=== PATIENT | female | born 1955 | race Two or more races ===

== ENCOUNTER → 2023-12-07 | Emergency (ER) | payer MEDICARE, OTHER ==
[~2023-12-07] VITALS: Ht 160 cm; Wt 68.0 kg
[~2023-12-07] MED LIST: AMLO10TA4 PO; CALC500T53 PO; CT SWABBABLE VALVE TRANS SET 1 EA INFUS.SET MC ONE; EZET10TA15 PO; FAMOTIDINE/PF INJ 20 MG/2 ML VIAL IV ONE; GABA-532 PO; HYDR-4076 PO; HYDROMORPHONE 1 MG/1 ML DISP.SYRIN ONE; IOHEXOL-300 100 ML VIAL IV ONE; IV NS 0.9% 250 ML IV ONE; LOSA100T31 PO; ONDANSETRON HCL/PF 4 MG/2 ML VIAL ONE; OXYC10TA49 PO
[2023-12-07] MEDS: ONDANSETRON HCL/PF 4 MG/2 ML VIAL IVP ONE (11:34)
[2023-12-07] MEDS: HYDROMORPHONE INJ 2 MG/ML DISP.SYRIN IV ONE (11:35)
[2023-12-07 12:16] LABS: CALCIUM, SERUM 10.6 mg/dL (8.5-10.1); CREATININE 3.7 mg/dL (0.6-1.3); POTASSIUM 3.9 mmol/L (3.5-5.1)
[2023-12-07 12:21] LABS: ALBUMIN 2.6 g/dL (3.4-5.0); BILIRUBIN,DIRECT 0.1 mg/dL (0.0-0.2); BILIRUBIN,TOTAL 0.4 mg/dL (0.2-1.0); TOTAL PROTEIN, SERUM 8.6 g/dL (6.4-8.2)
[2023-12-07] MEDS: FAMOTIDINE/PF INJ 20 MG/2 ML VIAL IV ONE (12:22)
[2023-12-07 14:16] LABS: BASOPHILS % (AUTO) 0.3 % (0.0-2.0); EOSINOPHILS % (AUTO) 0.5 % (0.0-6.0); HEMATOCRIT 26 % (33-45); HEMOGLOBIN 8.6 g/dL (11.5-14.8); LYMPHOCYTES # (AUTO) 1.4 K/uL (0.8-4.8); LYMPHOCYTES % (AUTO) 16.6 % (20.0-44.0); MEAN CORPUSCULAR HEMOGLOBIN 32 PG (26.0-33.0); MEAN CORPUSCULAR HGB CONC 33 g/dl (31.0-36.0); MEAN CORPUSCULAR VOLUME 98 fL (82-100); MONOCYTES # (AUTO) 0.4 K/uL (0.1-1.30); MONOCYTES % (AUTO) 4.6 % (2.0-12.0); NEUTROPHILS # (AUTO) 6.7 K/uL (1.8-8.9); PLATELET COUNT (AUTO) 132 K/uL (150-450); RED BLOOD CELL COUNT(AUTO) 2.69 MIL/uL (4.0-5.2); RED CELL DISTRIBUTION WIDTH 21.6 % (11.5-15.0); WHITE BLOOD COUNT (AUTO) 8.6 K/uL (4.3-11.0)
[2023-12-07 14:46] LABS: APPEARANCE,URINE SLIGHTLY CLOUDY (CLEAR); BILIRUBIN,URINE NEGATIVE (NEGATIVE); BLOOD, URINE NEGATIVE Ery/uL (NEGATIVE); COLOR,URINE YELLOW (YELLOW); KETONES,URINE NEGATIVE (NEGATIVE); LEUKOCYTE ESTERASE ,URINE NEGATIVE (NEGATIVE); NITRITE, URINE NEGATIVE (NEGATIVE); PROTEIN,URINE 1+ mg/dl (NEGATIVE); UGLUCOSE NEGATIVE (NEGATIVE); UROBILINOGEN,URINE 0.2 EU/dL (0.2)
[2023-12-07 15:06] LABS: ADD URINE CULTURE NO; BACTERIA,URINE Few /HPF (None Seen)
[2023-12-07] MEDS: HYDROMORPHONE 1 MG/1 ML DISP.SYRIN IV ONE (15:06)
[2023-12-07 15:07] LABS: HYALINE CASTS, URINE Few /LPF (None Seen); SQUAMOUS EPITHELIAL CELL,UR Few /HPF (None Seen); URINE AMORPHOUS PHOSPHATES Few /HPF (None Seen)
[2023-12-07] MEDS: IV NS 0.9% 500 ML BAG IV ONE (15:13)
[2023-12-07 16:42] VITALS: BP 155/85; TEMP 98.1; O2SAT 96
== END | disposition home or self-care (01) ==
LOC: ER 11:16
DX: R10.84 Generalized abdominal pain (principal); C45.1 Mesothelioma of peritoneum; K59.00 Constipation, unspecified; N18.9 Chronic kidney disease, unspecified; R18.8 Other ascites; Z79.899 Other long term (current) drug therapy
CPT/HCPCS: 99285; 74177; 96374; 96375; 96376; 85025; 80048; 83690; 80076; 81001; 36415; J3490; J2405; J7050; J7040; Q9967; J1171 ×2

== ENCOUNTER 2023-12-10 13:19 | Emergency (ER) | payer MEDICARE, OTHER ==
[~2023-12-10] VITALS: Ht 167.6 cm; Wt 67.1 kg
[~2023-12-10 13:19] MED LIST changes: -CT SWABBABLE VALVE TRANS SET 1 EA INFUS.SET MC ONE; -FAMOTIDINE/PF INJ 20 MG/2 ML VIAL IV ONE; -HYDROMORPHONE 1 MG/1 ML DISP.SYRIN ONE; -IOHEXOL-300 100 ML VIAL IV ONE; -IV NS 0.9% 250 ML IV ONE; -ONDANSETRON HCL/PF 4 MG/2 ML VIAL ONE
[2023-12-10] MEDS ORDERED: ONDANSETRON HCL/PF 4 MG/2 ML VIAL ONE (13:48)
[2023-12-10] MEDS ORDERED: HYDROMORPHONE 1 MG/1 ML DISP.SYRIN ONE (13:48)
[2023-12-10] MEDS: ONDANSETRON HCL/PF 4 MG/2 ML VIAL IVP ONE (14:05)
[2023-12-10] MEDS: HYDROMORPHONE INJ 2 MG/ML DISP.SYRIN IV ONE (14:05)
[2023-12-10] MEDS: IV NS 0.9% 500 ML BAG IV ONE (14:10)
[2023-12-10 14:32] LABS: BASOPHILS % (AUTO) 0.6 % (0.0-2.0); EOSINOPHILS # (AUTO) 0.1 K/uL (0.0-0.7); HEMATOCRIT 27 % (33-45); HEMOGLOBIN 8.9 g/dL (11.5-14.8); LYMPHOCYTES % (AUTO) 15.6 % (20.0-44.0); MEAN CORPUSCULAR HEMOGLOBIN 32 PG (26.0-33.0); MEAN CORPUSCULAR HGB CONC 33 g/dl (31.0-36.0); MEAN CORPUSCULAR VOLUME 98 fL (82-100); MONOCYTES # (AUTO) 0.4 K/uL (0.1-1.30); NEUTROPHILS # (AUTO) 5.1 K/uL (1.8-8.9); NEUTROPHILS % (AUTO) 76.8 % (43.0-81.0); PLATELET COUNT (AUTO) 132 K/uL (150-450); RED BLOOD CELL COUNT(AUTO) 2.78 MIL/uL (4.0-5.2); RED CELL DISTRIBUTION WIDTH 21.1 % (11.5-15.0); WHITE BLOOD COUNT (AUTO) 6.6 K/uL (4.3-11.0)
[2023-12-10 14:48] LABS: CALCIUM, SERUM 9.3 mg/dL (8.5-10.1); CREATININE 3.9 mg/dL (0.6-1.3); POTASSIUM 3.8 mmol/L (3.5-5.1)
[2023-12-10 14:54] LABS: ALBUMIN 2.4 g/dL (3.4-5.0); BILIRUBIN,DIRECT 0.1 mg/dL (0.0-0.2); BILIRUBIN,TOTAL 0.4 mg/dL (0.2-1.0); TOTAL PROTEIN, SERUM 7.9 g/dL (6.4-8.2)
[2023-12-10] MEDS ORDERED: PROC5TAB56 PO (15:15)
[2023-12-10 16:15] VITALS: BP 138/78; TEMP 98.4; O2SAT 98
== END 2023-12-10 16:15 | disposition home or self-care (01) ==
LOC: ER 13:21
DX: C45.1 Mesothelioma of peritoneum (principal); R10.84 Generalized abdominal pain; N18.9 Chronic kidney disease, unspecified; R18.8 Other ascites; Z79.899 Other long term (current) drug therapy; Z85.89 Personal history of malignant neoplasm of other organs and systems
CPT/HCPCS: 99284; 96374; 96375; 85025; 80048; 83690; 80076; 36415; J2405; J7040; J1171

== ENCOUNTER 2023-12-22 11:06 | Emergency (ER) | payer MEDICARE, OTHER ==
[~2023-12-22] VITALS: Ht 167.6 cm; Wt 65.8 kg
[~2023-12-22 11:06] MED LIST changes: +PROC5TAB56 PO
[2023-12-22] MEDS ORDERED: ONDANSETRON HCL/PF 4 MG/2 ML VIAL ONE (11:56)
[2023-12-22] MEDS ORDERED: HYDROMORPHONE 1 MG/1 ML DISP.SYRIN ONE (11:56)
[2023-12-22] MEDS: ONDANSETRON HCL/PF 4 MG/2 ML VIAL IVP ONE (12:03)
[2023-12-22] MEDS: IV NS 0.9% 1,000 ML BAG IV ONE (12:03)
[2023-12-22] MEDS: HYDROMORPHONE INJ 2 MG/ML DISP.SYRIN IV ONE (12:04)
[2023-12-22 12:09] LABS: CALCIUM, SERUM 9.3 mg/dL (8.5-10.1); CREATININE 4.9 mg/dL (0.6-1.3); POTASSIUM 4.2 mmol/L (3.5-5.1)
[2023-12-22 12:10] LABS: BASOPHILS # (AUTO) 0.1 K/uL (0.0-0.2); BASOPHILS % (AUTO) 0.6 % (0.0-2.0); EOSINOPHILS % (AUTO) 0.4 % (0.0-6.0); HEMATOCRIT 33 % (33-45); HEMOGLOBIN 10.7 g/dL (11.5-14.8); LYMPHOCYTES # (AUTO) 1.2 K/uL (0.8-4.8); LYMPHOCYTES % (AUTO) 12.6 % (20.0-44.0); MEAN CORPUSCULAR HEMOGLOBIN 34 PG (26.0-33.0); MEAN CORPUSCULAR HGB CONC 33 g/dl (31.0-36.0); MEAN CORPUSCULAR VOLUME 104 fL (82-100); MONOCYTES # (AUTO) 0.4 K/uL (0.1-1.30); MONOCYTES % (AUTO) 4.4 % (2.0-12.0); PLATELET COUNT (AUTO) 139 K/uL (150-450); RED BLOOD CELL COUNT(AUTO) 3.16 MIL/uL (4.0-5.2); RED CELL DISTRIBUTION WIDTH 18.4 % (11.5-15.0); WHITE BLOOD COUNT (AUTO) 9.8 K/uL (4.3-11.0)
[2023-12-22 12:15] LABS: ALBUMIN 2.4 g/dL (3.4-5.0); BILIRUBIN,DIRECT 0.2 mg/dL (0.0-0.2); BILIRUBIN,TOTAL 0.4 mg/dL (0.2-1.0); TOTAL PROTEIN, SERUM 7.9 g/dL (6.4-8.2)
[2023-12-22 12:53] VITALS: BP 132/84; TEMP 98; O2SAT 99
== END 2023-12-22 12:53 | disposition home or self-care (01) ==
LOC: ER 11:06
DX: C45.1 Mesothelioma of peritoneum (principal); N28.9 Disorder of kidney and ureter, unspecified; R10.84 Generalized abdominal pain
CPT/HCPCS: 99285; 74176; 96374; 96361; 96375; 85025; 80048; 83690; 80076; 36415; J2405; J7030; J1171

== ENCOUNTER 2023-12-28 19:36 | Emergency (ER) | payer MEDICARE, OTHER ==
[~2023-12-28] VITALS: Ht 167.6 cm; Wt 59.0 kg
[2023-12-28 19:57] VITALS: TEMP 99.9
[2023-12-28] MEDS: IV NS 0.9% 1,000 ML BAG IV ONE (20:20)
[2023-12-28] MEDS ORDERED: ONDANSETRON HCL/PF 4 MG/2 ML VIAL ONE ×2 (20:20→21:28)
[2023-12-28] MEDS ORDERED: MORPHINE SULFATE INJ 2 MG/ML DISP.SYRIN ONE ×2 (20:21→21:28)
[2023-12-28] MEDS ORDERED: FAMOTIDINE/PF INJ 20 MG/2 ML VIAL IV ONE (20:21)
[2023-12-28 20:22] LABS: BASOPHILS % (AUTO) 0.5 % (0.0-2.0); EOSINOPHILS # (AUTO) 0.1 K/uL (0.0-0.7); EOSINOPHILS % (AUTO) 0.8 % (0.0-6.0); HEMATOCRIT 31 % (33-45); HEMOGLOBIN 10.2 g/dL (11.5-14.8); LYMPHOCYTES # (AUTO) 1.7 K/uL (0.8-4.8); LYMPHOCYTES % (AUTO) 24.9 % (20.0-44.0); MEAN CORPUSCULAR HEMOGLOBIN 33 PG (26.0-33.0); MEAN CORPUSCULAR HGB CONC 33 g/dl (31.0-36.0); MEAN CORPUSCULAR VOLUME 102 fL (82-100); MONOCYTES # (AUTO) 0.4 K/uL (0.1-1.30); MONOCYTES % (AUTO) 6.5 % (2.0-12.0); NEUTROPHILS # (AUTO) 4.6 K/uL (1.8-8.9); NEUTROPHILS % (AUTO) 67.3 % (43.0-81.0); PLATELET COUNT (AUTO) 113 K/uL (150-450); RED BLOOD CELL COUNT(AUTO) 3.06 MIL/uL (4.0-5.2); RED CELL DISTRIBUTION WIDTH 16.6 % (11.5-15.0); WHITE BLOOD COUNT (AUTO) 6.8 K/uL (4.3-11.0)
[2023-12-28] MEDS: ONDANSETRON HCL/PF 4 MG/2 ML VIAL IVP ONE (20:22)
[2023-12-28] MEDS: FAMOTIDINE/PF INJ 20 MG/2 ML VIAL IV ONE (20:23)
[2023-12-28] MEDS: MORPHINE SULFATE INJ 2 MG/ML DISP.SYRIN IV ONE ×2 (20:24→21:32)
[2023-12-28 20:39] LABS: ALANINE AMINOTRANSFERASE 11 U/L (12-78); ALBUMIN 1.9 g/dL (3.4-5.0); ALKALINE PHOSPHATASE 72 U/L (46-116); ASPARTATE AMINOTRANSFERASE 19 U/L (15-37); BILIRUBIN,DIRECT 0.1 mg/dL (0.0-0.2); BILIRUBIN,TOTAL 0.3 mg/dL (0.2-1.0); CALCIUM, SERUM 8.9 mg/dL (8.5-10.1); CARBON DIOXIDE 22 mmol/L (21-32); CHLORIDE 99 mmol/L (98-107); CREATININE 3.8 mg/dL (0.6-1.3); GLUCOSE 103 mg/dL (74-106); LIPASE 13 U/L (16-77); SODIUM SERUM 136 mmol/L (136-145); UREA NITROGEN, BLOOD 60 mg/dL (7-18)
[2023-12-28] MEDS ORDERED: ASPIRIN 325 MG TABLET ONE (21:10)
[2023-12-28] MEDS ORDERED: PANTOPRAZOLE 40 MG VIAL ONE (21:10)
[2023-12-28] MEDS: PANTOPRAZOLE 40 MG VIAL IV ONE (21:18)
[2023-12-28] MEDS: ASPIRIN 325 MG TABLET PO ONE (21:19)
[2023-12-28] MEDS: ONDANSETRON HCL/PF - ER 4 MG/2 ML VIAL IV ONE (21:30)
[2023-12-28 21:39] VITALS: BP 128/78; O2SAT 99
[2023-12-28 22:18] LABS: EOSINOPHILS % (MANUAL) 1 % (0-4); LYMPHOCYTES % (MANUAL) 27 % (16-48); MONOCYTES % (MANUAL) 7 % (0-11.0); NEUTROPHILS % (MANUAL) 65 (42-76); PLATELET ESTIMATE DECREASED
== END 2023-12-28 21:36 | disposition home or self-care (01) ==
LOC: ER 19:40
DX: I21.4 Non-ST elevation (NSTEMI) myocardial infarction (principal); Z92.21 Personal history of antineoplastic chemotherapy
CPT/HCPCS: 99291; 96374; 96375; 96361; 93005; 74021; 96376; 85025; 80048; 83690; 80076; 36415; 84484; 85007; J3490; J2405 ×3; J7030; J2470; J2270 ×2

== ENCOUNTER 2023-12-31 09:23 | Inpatient (IN) | payer MEDICARE, OTHER ==
[~2023-12-31] VITALS: Ht 162.6 cm; Wt 67.6 kg
[2023-12-31] MEDS: ONDANSETRON HCL/PF 4 MG/2 ML VIAL IVP ONE (10:30)
[2023-12-31] MEDS: FAMOTIDINE/PF INJ 20 MG/2 ML VIAL IV ONE (10:35)
[2023-12-31] MEDS: IV NS 0.9% 1,000 ML BAG IV ONE (10:40)
[2023-12-31] MEDS ORDERED: FAMOTIDINE/PF INJ 20 MG/2 ML VIAL IV ONE (10:44)
[2023-12-31] MEDS ORDERED: ONDANSETRON HCL/PF 4 MG/2 ML VIAL ONE (10:44)
[2023-12-31] MEDS ORDERED: MORPHINE SULFATE INJ 2 MG/ML DISP.SYRIN ONE (10:44)
[2023-12-31 10:51] LABS: BASOPHILS % (AUTO) 0.6 % (0.0-2.0); EOSINOPHILS % (AUTO) 0.4 % (0.0-6.0); HEMATOCRIT 30 % (33-45); LYMPHOCYTES % (AUTO) 15.3 % (20.0-44.0); MEAN CORPUSCULAR HEMOGLOBIN 34 PG (26.0-33.0); MEAN CORPUSCULAR HGB CONC 33 g/dl (31.0-36.0); MEAN CORPUSCULAR VOLUME 102 fL (82-100); MONOCYTES # (AUTO) 0.3 K/uL (0.1-1.30); MONOCYTES % (AUTO) 4.6 % (2.0-12.0); NEUTROPHILS # (AUTO) 5.3 K/uL (1.8-8.9); NEUTROPHILS % (AUTO) 79.1 % (43.0-81.0); PLATELET COUNT (AUTO) 114 K/uL (150-450); RED BLOOD CELL COUNT(AUTO) 2.93 MIL/uL (4.0-5.2); RED CELL DISTRIBUTION WIDTH 15.8 % (11.5-15.0); WHITE BLOOD COUNT (AUTO) 6.7 K/uL (4.3-11.0)
[2023-12-31 11:00] LABS: ALBUMIN 1.8 g/dL (3.4-5.0); BILIRUBIN,DIRECT 0.1 mg/dL (0.0-0.2); BILIRUBIN,TOTAL 0.3 mg/dL (0.2-1.0); CALCIUM, SERUM 9.2 mg/dL (8.5-10.1); CREATININE 3.9 mg/dL (0.6-1.3); POTASSIUM 4.5 mmol/L (3.5-5.1); TOTAL PROTEIN, SERUM 6.7 g/dL (6.4-8.2)
[2023-12-31] MEDS: MORPHINE SULFATE INJ 2 MG/ML DISP.SYRIN IV ONE (11:04)
[2023-12-31] MEDS ORDERED: METOCLOPRAMIDE HCL 10 MG/2 ML VIAL ONE (11:23)
[2023-12-31] MEDS ORDERED: diphenhydrAMINE HCL 50 MG/ML VIAL ONE (11:23)
[2023-12-31] MEDS: METOCLOPRAMIDE HCL 10 MG/2 ML VIAL IV ONE (11:30)
[2023-12-31] MEDS: ASPIRIN 325 MG TABLET PO ONE (11:31)
[2023-12-31] MEDS: diphenhydrAMINE HCL 50 MG/ML VIAL IV ONE (11:41)
[2023-12-31 12:00] VITALS: O2SAT 96
[2023-12-31] MEDS: HYDROMORPHONE 1 MG/1 ML DISP.SYRIN IV ONE (12:18)
[2023-12-31] MEDS ORDERED: Z GUARD REMEDY 4 OZ OINT TP PRN (12:30)
[2023-12-31] MEDS ORDERED: oxyCODONE IR immediate release 5 MG TABLET PO PRN (12:30)
[2023-12-31] MEDS ORDERED: ACETAMINOPHEN 325 MG TABLET PO PRN (12:30)
[2023-12-31] MEDS ORDERED: PROCHLORPERAZINE MALEATE 5 MG TABLET PO PRN (12:30)
[2023-12-31] MEDS ORDERED: PROCHLORPERAZINE MALEATE 10 MG TABLET PO PRN (12:30)
[2023-12-31] MEDS: HYDROMORPHONE 1 MG/1 ML DISP.SYRIN IV PRN (14:22)
[2023-12-31] MEDS: PANTOPRAZOLE 40 MG VIAL IV SCH (14:26)
[2023-12-31] MEDS: IV NS 0.9% 1,000 ML IV PRN (15:49)
[2023-12-31 16:00] VITALS: BP 138/79; TEMP 97.9; O2SAT 99
[2023-12-31 16:09] LABS: RHEUMATOID FACTOR SCREEN NEGATIVE (NEGATIVE)
[2023-12-31 16:55] LABS: C-REACTIVE PROTEIN 14.93 mg/dL (0.0-0.30); THYROID STIMULATING HORMONE 31.13 uIU/mL (0.358-3.74)
[2023-12-31] MEDS: GABAPENTIN 100 MG CAPSULE PO SCH (17:05)
[2023-12-31] MEDS: AMLODIPINE BESYLATE 10 MG TABLET PO SCH (18:14)
[2023-12-31] MEDS: MAG HYDROX/AL HYDROX/SIMETH 30 ML UDC PO PRN (19:19)
[2023-12-31 21:10] VITALS: BP 136/85; TEMP 98.2; O2SAT 96
[2023-12-31] MEDS: ONDANSETRON HCL/PF 4 MG/2 ML VIAL IVP PRN (21:45)
[2023-12-31] MEDS ORDERED: FAMOTIDINE (20 MG) 20 MG TABLET PO SCH (22:30)
[2023-12-31] MEDS ORDERED: diphenhydrAMINE HCL ELIX 25 MG/10 ML UDC PO PRN (22:30)
[2024-01-01] MEDS: FAMOTIDINE (20 MG) 20 MG TABLET PO ONE (00:20)
[2024-01-01 00:28] VITALS: BP 146/81; TEMP 98.2; O2SAT 98
[2024-01-01 04:34] VITALS: BP 139/78; TEMP 98.2; O2SAT 95
[2024-01-01 06:57] LABS: ALBUMIN 1.7 g/dL (3.4-5.0); BILIRUBIN,TOTAL 0.4 mg/dL (0.2-1.0); CALCIUM, SERUM 8.8 mg/dL (8.5-10.1); CREATININE 3.8 mg/dL (0.6-1.3); PHOSPHORUS 3.8 mg/dL (2.5-4.9); POTASSIUM 4.3 mmol/L (3.5-5.1); TOTAL PROTEIN, SERUM 6.4 g/dL (6.4-8.2)
[2024-01-01 07:00] LABS: BASOPHILS % (AUTO) 0.3 % (0.0-2.0); EOSINOPHILS % (AUTO) 0.8 % (0.0-6.0); HEMATOCRIT 29 % (33-45); HEMOGLOBIN 9.4 g/dL (11.5-14.8); LYMPHOCYTES # (AUTO) 0.9 K/uL (0.8-4.8); LYMPHOCYTES % (AUTO) 14.9 % (20.0-44.0); MEAN CORPUSCULAR HEMOGLOBIN 34 PG (26.0-33.0); MEAN CORPUSCULAR HGB CONC 33 g/dl (31.0-36.0); MEAN CORPUSCULAR VOLUME 103 fL (82-100); MONOCYTES # (AUTO) 0.4 K/uL (0.1-1.30); MONOCYTES % (AUTO) 5.9 % (2.0-12.0); NEUTROPHILS # (AUTO) 4.8 K/uL (1.8-8.9); NEUTROPHILS % (AUTO) 78.1 % (43.0-81.0); PLATELET COUNT (AUTO) 113 K/uL (150-450); RED BLOOD CELL COUNT(AUTO) 2.77 MIL/uL (4.0-5.2); RED CELL DISTRIBUTION WIDTH 15.7 % (11.5-15.0); WHITE BLOOD COUNT (AUTO) 6.2 K/uL (4.3-11.0)
[2024-01-01 07:07] LABS: HEPATITIS B SURFACE AB Non Reactive (.)
[2024-01-01 07:44] LABS: MAGNESIUM 0.8 mg/dL (1.8-2.4)
[2024-01-01 08:00] VITALS: BP 154/83; TEMP 97.9; O2SAT 97
[2024-01-01 08:10] LABS: IMMUNOGLOBULIN A, SERUM 209 mg/dL (87-352); IMMUNOGLOBULIN G, SERUM 1356 mg/dL (586-1602); IMMUNOGLOBULIN M, SERUM 86 mg/dL (26-217)
[2024-01-01] MEDS: Magnesium 1GM/D5W 100ML PREMIX 100 ML IV SCH (08:18)
[2024-01-01] MEDS: FAMOTIDINE (20 MG) 20 MG TABLET PO SCH (08:18)
[2024-01-01] MEDS: LOSARTAN POTASSIUM 50 MG TABLET PO SCH (08:19)
[2024-01-01] MEDS: PANTOPRAZOLE 40 MG TABLET.DR PO SCH (09:20)
[2024-01-01 11:07] LABS: *SPE A/G RATIO 0.6 (0.7-1.7); *SPE ALPHA-1-GLOBULIN 0.4 g/dL (0.0-0.4); *SPE ALPHA-2-GLOBULIN 0.7 g/dL (0.4-1.0); *SPE BETA GLOBULIN 0.9 g/dL (0.7-1.3); *SPE GLOBULIN, TOTAL 3.5 g/dL (2.2-3.9); *SPE M-SPIKE Not Observed g/dL (Not Observed); *SPE PROTEIN TOTAL 5.5 g/dL (6.0-8.5); *SPEGAMMA GLOBULIN 1.4 g/dL (0.4-1.8)
[2024-01-01] MEDS: LEVOTHYROXINE SODIUM 50 MCG TABLET PO SCH (11:21)
[2024-01-01 12:10] LABS: *ANA ANTI-CENTROMERE B AB <0.2 AI (0.0-0.9); *ANA ANTI-DNA(DS) AB, QN <1 IU/mL (0-9); *ANA ANTI-JO-1 <0.2 AI (0.0-0.9); *ANA ANTICHROMATIN ANTIBODY <0.2 AI (0.0-0.9); *ANA RNP ANTIBODIES <0.2 AI (0.0-0.9); *ANA SJOGREN'S ANTI-SS-A <0.2 AI (0.0-0.9); *ANA SJOGREN'S ANTI-SS-B <0.2 AI (0.0-0.9); *ANAANTI-SCLERODERMA-70 AB <0.2 AI (0.0-0.9); *ANASMITH AB <0.2 AI (0.0-0.9)
[2024-01-01 13:13] LABS: FREE KAPPA LT CHAINS SERUM 111.3 mg/L (3.3-19.4); KAPPA/LAMBDA RATIO SERUM 1.37 (0.26-1.65)
[2024-01-01 16:00] VITALS: BP 138/73; TEMP 97.7; O2SAT 95
[2024-01-01] MEDS: dexAMETHasone 4 MG TABLET PO SCH (17:08)
[2024-01-01] MEDS: PROCHLORPERAZINE EDISYLATE 10 MG/2 ML VIAL IM/IV PRN (18:35)
[2024-01-02 07:30] VITALS: BP 107/59; TEMP 97.7; O2SAT 95
[2024-01-02 13:04] LABS: BASOPHILS % (AUTO) 0.2 % (0.0-2.0); EOSINOPHILS % (AUTO) 0.2 % (0.0-6.0); HEMATOCRIT 29 % (33-45); HEMOGLOBIN 9.4 g/dL (11.5-14.8); LYMPHOCYTES # (AUTO) 0.8 K/uL (0.8-4.8); LYMPHOCYTES % (AUTO) 11.8 % (20.0-44.0); MEAN CORPUSCULAR HEMOGLOBIN 35 PG (26.0-33.0); MEAN CORPUSCULAR HGB CONC 33 g/dl (31.0-36.0); MEAN CORPUSCULAR VOLUME 106 fL (82-100); MONOCYTES # (AUTO) 0.3 K/uL (0.1-1.30); NEUTROPHILS # (AUTO) 5.5 K/uL (1.8-8.9); NEUTROPHILS % (AUTO) 83.8 % (43.0-81.0); PLATELET COUNT (AUTO) 135 K/uL (150-450); RED CELL DISTRIBUTION WIDTH 15.4 % (11.5-15.0); WHITE BLOOD COUNT (AUTO) 6.5 K/uL (4.3-11.0)
[2024-01-02 13:17] LABS: ALBUMIN 1.6 g/dL (3.4-5.0); BILIRUBIN,TOTAL 0.3 mg/dL (0.2-1.0); CALCIUM, SERUM 8.7 mg/dL (8.5-10.1); MAGNESIUM 2.1 mg/dL (1.8-2.4); PHOSPHORUS 4.4 mg/dL (2.5-4.9); POTASSIUM 4.9 mmol/L (3.5-5.1); TOTAL PROTEIN, SERUM 6.1 g/dL (6.4-8.2)
[2024-01-02 16:00] VITALS: BP 132/66; TEMP 97.7; O2SAT 94
[2024-01-02 16:27] LABS: BASOPHILS % (AUTO) 0.3 % (0.0-2.0); EOSINOPHILS % (AUTO) 0.1 % (0.0-6.0); HEMATOCRIT 29 % (33-45); HEMOGLOBIN 9.1 g/dL (11.5-14.8); LYMPHOCYTES % (AUTO) 16.9 % (20.0-44.0); MEAN CORPUSCULAR HEMOGLOBIN 34 PG (26.0-33.0); MEAN CORPUSCULAR HGB CONC 32 g/dl (31.0-36.0); MEAN CORPUSCULAR VOLUME 106 fL (82-100); MONOCYTES # (AUTO) 0.3 K/uL (0.1-1.30); MONOCYTES % (AUTO) 5.7 % (2.0-12.0); NEUTROPHILS # (AUTO) 4.4 K/uL (1.8-8.9); PLATELET COUNT (AUTO) 128 K/uL (150-450); RED BLOOD CELL COUNT(AUTO) 2.69 MIL/uL (4.0-5.2); RED CELL DISTRIBUTION WIDTH 15.6 % (11.5-15.0); WHITE BLOOD COUNT (AUTO) 5.8 K/uL (4.3-11.0)
[2024-01-02] MEDS: methylPREDNISolone SOD SUCC 40 MG/ML VIAL IV SCH (17:42)
[2024-01-02 17:54] LABS: ALBUMIN 1.6 g/dL (3.4-5.0); BILIRUBIN,TOTAL 0.3 mg/dL (0.2-1.0); CALCIUM, SERUM 8.8 mg/dL (8.5-10.1); CREATININE 3.8 mg/dL (0.6-1.3); PHOSPHORUS 4.6 mg/dL (2.5-4.9); POTASSIUM 4.7 mmol/L (3.5-5.1)
[2024-01-02] MEDS: MAGNESIUM HYDROXIDE 30 ML UDC PO PRN (17:58)
[2024-01-02 20:00] VITALS: BP 119/69; TEMP 98.1; O2SAT 94
[2024-01-02] MEDS: FAMOTIDINE/PF INJ 20 MG/2 ML VIAL IV SCH (22:46)
[2024-01-03 07:30] VITALS: BP 125/68; TEMP 97.9; O2SAT 95
[2024-01-03 07:38] LABS: BASOPHILS % (AUTO) 0.2 % (0.0-2.0); EOSINOPHILS % (AUTO) 0.2 % (0.0-6.0); HEMATOCRIT 27 % (33-45); HEMOGLOBIN 8.6 g/dL (11.5-14.8); LYMPHOCYTES # (AUTO) 1.5 K/uL (0.8-4.8); LYMPHOCYTES % (AUTO) 22.9 % (20.0-44.0); MEAN CORPUSCULAR HEMOGLOBIN 34 PG (26.0-33.0); MEAN CORPUSCULAR HGB CONC 32 g/dl (31.0-36.0); MEAN CORPUSCULAR VOLUME 107 fL (82-100); MONOCYTES # (AUTO) 0.5 K/uL (0.1-1.30); MONOCYTES % (AUTO) 7.2 % (2.0-12.0); NEUTROPHILS # (AUTO) 4.6 K/uL (1.8-8.9); NEUTROPHILS % (AUTO) 69.5 % (43.0-81.0); PLATELET COUNT (AUTO) 136 K/uL (150-450); RED BLOOD CELL COUNT(AUTO) 2.52 MIL/uL (4.0-5.2); RED CELL DISTRIBUTION WIDTH 15.2 % (11.5-15.0); WHITE BLOOD COUNT (AUTO) 6.5 K/uL (4.3-11.0)
[2024-01-03 08:12] LABS: PHOSPHORUS 4.8 mg/dL (2.5-4.9)
[2024-01-03 11:07] LABS: PTH, INTACT 17 pg/mL (15-65)
[2024-01-03] MEDS: HYDROMORPHONE 1 MG/1 ML DISP.SYRIN IV PRN (15:25)
[2024-01-03 16:00] VITALS: BP 120/64; TEMP 97.7; O2SAT 93
[2024-01-03] MEDS ORDERED: HYDROMORPHONE 1 MG/1 ML DISP.SYRIN IV PRN (17:00)
[2024-01-03 20:00] VITALS: BP 124/73; TEMP 98.1; O2SAT 95
[2024-01-04 08:00] VITALS: BP 138/75; TEMP 97.7; O2SAT 96
[2024-01-04] MEDS ORDERED: LEVO50TA PO (08:52)
[2024-01-04] MEDS ORDERED: PANT40TA49 PO (08:52)
[2024-01-04] MEDS ORDERED: FAMOTIDINE (20 MG) 20 MG TABLET PO SCH ×2 (09:00→21:00)
[2024-01-04 10:06] LABS: BASOPHILS % (AUTO) 0.2 % (0.0-2.0); EOSINOPHILS % (AUTO) 0.3 % (0.0-6.0); HEMATOCRIT 28 % (33-45); HEMOGLOBIN 8.9 g/dL (11.5-14.8); LYMPHOCYTES # (AUTO) 0.9 K/uL (0.8-4.8); LYMPHOCYTES % (AUTO) 11.2 % (20.0-44.0); MEAN CORPUSCULAR HEMOGLOBIN 34 PG (26.0-33.0); MEAN CORPUSCULAR HGB CONC 31 g/dl (31.0-36.0); MEAN CORPUSCULAR VOLUME 108 fL (82-100); MONOCYTES # (AUTO) 0.4 K/uL (0.1-1.30); MONOCYTES % (AUTO) 5.4 % (2.0-12.0); NEUTROPHILS # (AUTO) 6.5 K/uL (1.8-8.9); NEUTROPHILS % (AUTO) 82.9 % (43.0-81.0); PLATELET COUNT (AUTO) 119 K/uL (150-450); RED BLOOD CELL COUNT(AUTO) 2.61 MIL/uL (4.0-5.2); RED CELL DISTRIBUTION WIDTH 15.2 % (11.5-15.0); WHITE BLOOD COUNT (AUTO) 7.8 K/uL (4.3-11.0)
[2024-01-04 10:38] LABS: LYMPHOCYTES % (MANUAL) 14 % (16-48); MONOCYTES % (MANUAL) 4 % (0-11.0); NEUTROPHILS % (MANUAL) 82 (42-76); PLATELET ESTIMATE DECREASED
[2024-01-04 10:39] LABS: ANISOCYTOSIS 1+
[2024-01-04 10:44] LABS: ALBUMIN 1.6 g/dL (3.4-5.0); BILIRUBIN,TOTAL 0.3 mg/dL (0.2-1.0); CALCIUM, SERUM 8.4 mg/dL (8.5-10.1); CREATININE 3.4 mg/dL (0.6-1.3); PHOSPHORUS 4.5 mg/dL (2.5-4.9); POTASSIUM 4.8 mmol/L (3.5-5.1); TOTAL PROTEIN, SERUM 5.8 g/dL (6.4-8.2)
[2024-01-06 06:07] LABS: *SPE A/G RATIO 0.5 (0.7-1.7); *SPE ALBUMIN 1.9 g/dL (2.9-4.4); *SPE ALPHA-1-GLOBULIN 0.5 g/dL (0.0-0.4); *SPE ALPHA-2-GLOBULIN 0.8 g/dL (0.4-1.0); *SPE GLOBULIN, TOTAL 3.7 g/dL (2.2-3.9); *SPE M-SPIKE Not Observed g/dL (Not Observed); *SPE PROTEIN TOTAL 5.6 g/dL (6.0-8.5); *SPEGAMMA GLOBULIN 1.4 g/dL (0.4-1.8)
== END 2024-01-04 14:21 | disposition home health service (06) | DRG 374 ==
LOC: ER 09:29 → TELE 11:56 → MED 01-01 13:27
PROVIDERS: ADMIT Internal Medicine; ATTEND Internal Medicine
DX: C45.1 Mesothelioma of peritoneum (principal); I21.A1 Myocardial infarction type 2; D61.818 Other pancytopenia; N18.4 Chronic kidney disease, stage 4 (severe); E87.20 Acidosis, unspecified; N17.9 Acute kidney failure, unspecified; R18.8 Other ascites; K43.9 Ventral hernia without obstruction or gangrene; R11.2 Nausea with vomiting, unspecified; D53.9 Nutritional anemia, unspecified; D63.8 Anemia in other chronic diseases classified elsewhere; E03.9 Hypothyroidism, unspecified; E83.42 Hypomagnesemia; E88.09 Other disorders of plasma-protein metabolism, not elsewhere classified; I25.2 Old myocardial infarction; M89.8X9 Other specified disorders of bone, unspecified site; Z92.21 Personal history of antineoplastic chemotherapy; I12.9 Hypertensive chronic kidney disease with stage 1 through stage 4 chronic kidney disease, or unspecified chronic kidney disease; D69.6 Thrombocytopenia, unspecified
CPT/HCPCS: 36415; 71045-TC; 71250-TC; 74021; 76536-TC; 76770-TC; 80048-TC; 80053-TC; 80076-TC; 82378; 82550-TC; 82607-TC; 82728-TC; 82784; 83540-TC; 83690-TC; 83735-TC; 83970; 84100-TC; 84155; 84165; 84439-TC; 84443-TC; 84481; 84484-TC; 85025-TC; 86140-TC; 86225; 86235; 86334; 86431-TC; 86706; 86803; 87340; 93307-TC; A4223; G0378; J0780; J1171; J1200; J2270; J2405; J2470; J2765; J2919; J3475; J3490; J7030; J8540; Q0164

== ENCOUNTER 2024-01-13 12:12 | Inpatient (IN) | payer MEDICARE, OTHER ==
[~2024-01-13] VITALS: Ht 167.6 cm; Wt 64.0 kg
[~2024-01-13 12:12] MED LIST changes: +LEVO50TA PO; +PANT40TA49 PO
[2024-01-13] MEDS: ONDANSETRON HCL/PF 4 MG/2 ML VIAL IVP ONE (13:00)
[2024-01-13] MEDS: MORPHINE SULFATE INJ 2 MG/ML DISP.SYRIN IV ONE (13:05)
[2024-01-13] MEDS: IV NS 0.9% 1,000 ML BAG IV ONE (13:15)
[2024-01-13] MEDS ORDERED: ONDANSETRON HCL/PF 4 MG/2 ML VIAL ONE ×2 (13:17→14:13)
[2024-01-13] MEDS ORDERED: MORPHINE SULFATE INJ 4 MG/ML DISP.SYRIN ONE (13:18)
[2024-01-13 13:25] LABS: BASOPHILS % (AUTO) 0.6 % (0.0-2.0); EOSINOPHILS % (AUTO) 0.2 % (0.0-6.0); HEMATOCRIT 26 % (33-45); HEMOGLOBIN 8.4 g/dL (11.5-14.8); LYMPHOCYTES # (AUTO) 0.7 K/uL (0.8-4.8); LYMPHOCYTES % (AUTO) 10.4 % (20.0-44.0); MEAN CORPUSCULAR HEMOGLOBIN 35 PG (26.0-33.0); MEAN CORPUSCULAR HGB CONC 32 g/dl (31.0-36.0); MEAN CORPUSCULAR VOLUME 107 fL (82-100); MONOCYTES # (AUTO) 0.5 K/uL (0.1-1.30); MONOCYTES % (AUTO) 6.4 % (2.0-12.0); NEUTROPHILS # (AUTO) 5.9 K/uL (1.8-8.9); NEUTROPHILS % (AUTO) 82.4 % (43.0-81.0); PLATELET COUNT (AUTO) 123 K/uL (150-450); RED BLOOD CELL COUNT(AUTO) 2.44 MIL/uL (4.0-5.2); RED CELL DISTRIBUTION WIDTH 14.4 % (11.5-15.0); WHITE BLOOD COUNT (AUTO) 7.2 K/uL (4.3-11.0)
[2024-01-13 13:38] LABS: CALCIUM, SERUM 9.2 mg/dL (8.5-10.1); CARBON DIOXIDE 17 mmol/L (21-32); CHLORIDE 104 mmol/L (98-107); CREATININE 3.6 mg/dL (0.6-1.3); GLUCOSE 91 mg/dL (74-106); SODIUM SERUM 136 mmol/L (136-145); UREA NITROGEN, BLOOD 61 mg/dL (7-18)
[2024-01-13 13:42] LABS: ALANINE AMINOTRANSFERASE 9 U/L (12-78); ALBUMIN 1.8 g/dL (3.4-5.0); ALKALINE PHOSPHATASE 83 U/L (46-116); ASPARTATE AMINOTRANSFERASE 12 U/L (15-37); BILIRUBIN,DIRECT 0.1 mg/dL (0.0-0.2); BILIRUBIN,TOTAL 0.3 mg/dL (0.2-1.0); LIPASE 13 U/L (16-77); TOTAL PROTEIN, SERUM 6.7 g/dL (6.4-8.2)
[2024-01-13] MEDS ORDERED: FAMOTIDINE/PF INJ 20 MG/2 ML VIAL IV ONE (14:13)
[2024-01-13] MEDS: FAMOTIDINE/PF INJ 20 MG/2 ML VIAL IV ONE (14:30)
[2024-01-13] MEDS: ONDANSETRON HCL/PF - ER 4 MG/2 ML VIAL IV ONE (14:30)
[2024-01-13] MEDS ORDERED: PROCHLORPERAZINE MALEATE 5 MG TABLET PO PRN (16:30)
[2024-01-13] MEDS ORDERED: ACETAMINOPHEN 325 MG TABLET PO PRN (16:30)
[2024-01-13] MEDS ORDERED: MORPHINE SULFATE INJ 2 MG/ML DISP.SYRIN IV PRN (16:30)
[2024-01-13] MEDS: LACTULOSE 10 G/15 ML UDC (PYXIS) PO SCH (17:00)
[2024-01-13] MEDS ORDERED: PROCHLORPERAZINE MALEATE 10 MG TABLET PO PRN (17:00)
[2024-01-13] MEDS ORDERED: oxyCODONE IR immediate release 5 MG TABLET PO PRN ×2 (17:00)
[2024-01-13] MEDS: FAMOTIDINE/PF INJ 20 MG/2 ML VIAL IV SCH (17:03)
[2024-01-13] MEDS: DOCUSATE SODIUM LIQ 100 MG/10 ML UDC PO SCH (17:03)
[2024-01-13] MEDS: METOCLOPRAMIDE HCL 10 MG/2 ML VIAL IV SCH (17:03)
[2024-01-13] MEDS: AMLODIPINE BESYLATE 5 MG TABLET PO SCH (17:04)
[2024-01-13] MEDS: GABAPENTIN 100 MG CAPSULE PO SCH (17:04)
[2024-01-13] MEDS: EZETIMIBE 10 MG TABLET PO SCH (17:06)
[2024-01-13 20:00] VITALS: BP 106/87; TEMP 97.5; O2SAT 97
[2024-01-13] MEDS: HEPARIN SODIUM, PORCINE 5000 UNITS/1 ML VIAL SQ SCH (20:21)
[2024-01-13 21:33] LABS: INR 0.97 (0.91-1.10); PROTHROMBIN TIME 10.3 SECS (9.2-11.1)
[2024-01-13] MEDS: ONDANSETRON HCL/PF 4 MG/2 ML VIAL IVP PRN (21:44)
[2024-01-14] VITALS (7 sets, daily range): BP systolic 90–148; BP diastolic 53–75; TEMP 97.2–99.5; O2SAT 97–99
[2024-01-14] MEDS: PANTOPRAZOLE 40 MG TABLET.DR PO SCH (09:46)
[2024-01-14] MEDS: POLYETHYLENE GLYCOL 3350 17 GM POWD.PACK PO SCH (09:46)
[2024-01-14] MEDS: LOSARTAN POTASSIUM 50 MG TABLET PO SCH (09:47)
[2024-01-14] MEDS: LEVOTHYROXINE SODIUM 50 MCG TABLET PO SCH (09:48)
[2024-01-14 11:30] LABS: BASOPHILS % (AUTO) 0.3 % (0.0-2.0); EOSINOPHILS % (AUTO) 0.2 % (0.0-6.0); HEMATOCRIT 27 % (33-45); HEMOGLOBIN 8.4 g/dL (11.5-14.8); LYMPHOCYTES # (AUTO) 1.2 K/uL (0.8-4.8); LYMPHOCYTES % (AUTO) 14.1 % (20.0-44.0); MEAN CORPUSCULAR HEMOGLOBIN 34 PG (26.0-33.0); MEAN CORPUSCULAR HGB CONC 31 g/dl (31.0-36.0); MEAN CORPUSCULAR VOLUME 108 fL (82-100); MONOCYTES # (AUTO) 0.5 K/uL (0.1-1.30); MONOCYTES % (AUTO) 5.9 % (2.0-12.0); NEUTROPHILS # (AUTO) 6.6 K/uL (1.8-8.9); NEUTROPHILS % (AUTO) 79.5 % (43.0-81.0); PLATELET COUNT (AUTO) 128 K/uL (150-450); RED BLOOD CELL COUNT(AUTO) 2.48 MIL/uL (4.0-5.2); RED CELL DISTRIBUTION WIDTH 14.6 % (11.5-15.0); WHITE BLOOD COUNT (AUTO) 8.3 K/uL (4.3-11.0)
[2024-01-14 11:57] LABS: ALBUMIN 1.8 g/dL (3.4-5.0); BILIRUBIN,TOTAL 0.3 mg/dL (0.2-1.0); CALCIUM, SERUM 9.1 mg/dL (8.5-10.1); CREATININE 3.6 mg/dL (0.6-1.3); MAGNESIUM 1.4 mg/dL (1.8-2.4); PHOSPHORUS 4.3 mg/dL (2.5-4.9); TOTAL PROTEIN, SERUM 6.6 g/dL (6.4-8.2)
[2024-01-14] MEDS ORDERED: NALOXONE HCL 0.4 MG/ML AMPUL IV PRN (13:00)
[2024-01-14] MEDS ORDERED: PROCHLORPERAZINE EDISYLATE 10 MG/2 ML VIAL IM/IV PRN (13:00)
[2024-01-14] MEDS ORDERED: oxyCODONE IR immediate release 5 MG TABLET PO PRN (13:00)
[2024-01-14] MEDS ORDERED: ONDANSETRON HCL/PF 4 MG/2 ML VIAL IV PRN (13:00)
[2024-01-14] MEDS: FENTANYL TD PATCH (12 MCG/HR) 12 MCG/HR PATCH.TD72 TD SCH (13:26)
[2024-01-14] MEDS ORDERED: MORPHINE SULFATE INJ 2 MG/ML DISP.SYRIN IV PRN (13:30)
[2024-01-14 16:53] LABS: CREATININE, URINE 77.2 MG/DL (30.0-125.0); URINE TOTAL PROTEIN 115.1 mg/dL (0-11.9)
[2024-01-15 00:19] VITALS: BP 125/66; TEMP 98.6; O2SAT 98
[2024-01-15 05:06] VITALS: BP 140/56; TEMP 97.9; O2SAT 98
[2024-01-15 07:40] LABS: BASOPHILS % (AUTO) 0.1 % (0.0-2.0); HEMATOCRIT 24 % (33-45); HEMOGLOBIN 7.8 g/dL (11.5-14.8); LYMPHOCYTES # (AUTO) 0.6 K/uL (0.8-4.8); LYMPHOCYTES % (AUTO) 6.8 % (20.0-44.0); MEAN CORPUSCULAR HEMOGLOBIN 34 PG (26.0-33.0); MEAN CORPUSCULAR HGB CONC 33 g/dl (31.0-36.0); MEAN CORPUSCULAR VOLUME 104 fL (82-100); MONOCYTES # (AUTO) 0.3 K/uL (0.1-1.30); MONOCYTES % (AUTO) 3.2 % (2.0-12.0); NEUTROPHILS # (AUTO) 7.5 K/uL (1.8-8.9); NEUTROPHILS % (AUTO) 89.9 % (43.0-81.0); PLATELET COUNT (AUTO) 134 K/uL (150-450); RED BLOOD CELL COUNT(AUTO) 2.29 MIL/uL (4.0-5.2); RED CELL DISTRIBUTION WIDTH 14.3 % (11.5-15.0); WHITE BLOOD COUNT (AUTO) 8.3 K/uL (4.3-11.0)
[2024-01-15 08:00] VITALS: BP 100/66; TEMP 98.6; O2SAT 97
[2024-01-15 08:03] LABS: CALCIUM, SERUM 8.9 mg/dL (8.5-10.1); CREATININE 3.8 mg/dL (0.6-1.3); POTASSIUM 4.1 mmol/L (3.5-5.1)
[2024-01-15 09:00] VITALS: BP 100/66
[2024-01-15] MEDS: IV NS 0.9% 1,000 ML IV SCH (11:21)
== END 2024-01-15 13:30 | disposition home health service (06) | DRG 375 ==
LOC: ER 12:17 → MED 16:08 → TELE 18:31
PROVIDERS: ADMIT Internal Medicine; ATTEND Internal Medicine
PROC: 0W9G3ZZ Drainage of Peritoneal Cavity, Percutaneous Approach (ICD-10-PCS; principal; 2024-01-14)
DX: C45.1 Mesothelioma of peritoneum (principal); D61.818 Other pancytopenia; R18.0 Malignant ascites; I13.0 Hypertensive heart and chronic kidney disease with heart failure and stage 1 through stage 4 chronic kidney disease, or unspecified chronic kidney disease; I50.32 Chronic diastolic (congestive) heart failure; N18.4 Chronic kidney disease, stage 4 (severe); E87.20 Acidosis, unspecified; G89.3 Neoplasm related pain (acute) (chronic); Z92.21 Personal history of antineoplastic chemotherapy; E03.9 Hypothyroidism, unspecified; R11.2 Nausea with vomiting, unspecified; D53.9 Nutritional anemia, unspecified; R00.0 Tachycardia, unspecified; Z79.899 Other long term (current) drug therapy; I25.2 Old myocardial infarction; M89.8X9 Other specified disorders of bone, unspecified site; Z90.710 Acquired absence of both cervix and uterus; K43.9 Ventral hernia without obstruction or gangrene; E88.09 Other disorders of plasma-protein metabolism, not elsewhere classified; D63.8 Anemia in other chronic diseases classified elsewhere; K59.00 Constipation, unspecified
CPT/HCPCS: 36415; 49083; 80048-TC; 80053-TC; 80076-TC; 82570-TC; 83690-TC; 83735-TC; 84100-TC; 84300-TC; 84484-TC; 85025-TC; 85610-TC; 87081-TC; A4223; G0378; J1644; J2270; J2405; J2765; J3490; J7030; Q0164

== ENCOUNTER 2024-01-21 15:51 | Emergency (ER) | payer MEDICARE, OTHER ==
[~2024-01-21] VITALS: Ht 157.5 cm; Wt 43.1 kg
[2024-01-21 18:26] LABS: BASOPHILS % (AUTO) 0.4 % (0.0-2.0); EOSINOPHILS % (AUTO) 0.2 % (0.0-6.0); HEMATOCRIT 27 % (33-45); HEMOGLOBIN 8.8 g/dL (11.5-14.8); LYMPHOCYTES # (AUTO) 1.1 K/uL (0.8-4.8); LYMPHOCYTES % (AUTO) 19.4 % (20.0-44.0); MEAN CORPUSCULAR HEMOGLOBIN 34 PG (26.0-33.0); MEAN CORPUSCULAR HGB CONC 33 g/dl (31.0-36.0); MEAN CORPUSCULAR VOLUME 104 fL (82-100); MONOCYTES # (AUTO) 0.3 K/uL (0.1-1.30); MONOCYTES % (AUTO) 5.3 % (2.0-12.0); NEUTROPHILS # (AUTO) 4.3 K/uL (1.8-8.9); NEUTROPHILS % (AUTO) 74.7 % (43.0-81.0); PLATELET COUNT (AUTO) 131 K/uL (150-450); RED BLOOD CELL COUNT(AUTO) 2.58 MIL/uL (4.0-5.2); RED CELL DISTRIBUTION WIDTH 14.7 % (11.5-15.0); WHITE BLOOD COUNT (AUTO) 5.7 K/uL (4.3-11.0)
[2024-01-21] MEDS ORDERED: diphenhydrAMINE HCL 50 MG/ML VIAL ONE (18:28)
[2024-01-21] MEDS ORDERED: METOCLOPRAMIDE HCL 10 MG/2 ML VIAL ONE (18:29)
[2024-01-21] MEDS: IV NS 0.9% 1,000 ML BAG IV ONE (18:36)
[2024-01-21 18:37] LABS: CALCIUM, SERUM 8.6 mg/dL (8.5-10.1); CREATININE 4.1 mg/dL (0.6-1.3); POTASSIUM 4.7 mmol/L (3.5-5.1)
[2024-01-21] MEDS: diphenhydrAMINE HCL 50 MG/ML VIAL IV ONE (18:37)
[2024-01-21] MEDS: METOCLOPRAMIDE HCL 10 MG/2 ML VIAL IV ONE (18:37)
[2024-01-21 18:40] LABS: ALBUMIN 1.9 g/dL (3.4-5.0); BILIRUBIN,DIRECT 0.1 mg/dL (0.0-0.2); BILIRUBIN,TOTAL 0.3 mg/dL (0.2-1.0); TOTAL PROTEIN, SERUM 6.7 g/dL (6.4-8.2)
[2024-01-21] MEDS: FAMOTIDINE/PF INJ 20 MG/2 ML VIAL IV ONE (19:11)
[2024-01-21 19:31] LABS: ANISOCYTOSIS 1+; BASOPHILS % (MANUAL) 0 % (0.0-2.0); EOSINOPHILS % (MANUAL) 0 % (0-4); LYMPHOCYTES % (MANUAL) 23 % (16-48); MONOCYTES % (MANUAL) 7 % (0-11.0); NEUTROPHILS % (MANUAL) 70 (42-76); PLATELET ESTIMATE DECREASED
[2024-01-21 22:21] VITALS: BP 122/76; O2SAT 99
== END 2024-01-21 19:30 | disposition home or self-care (01) ==
LOC: ER 15:54
DX: R10.9 Unspecified abdominal pain (principal); R11.2 Nausea with vomiting, unspecified; I12.9 Hypertensive chronic kidney disease with stage 1 through stage 4 chronic kidney disease, or unspecified chronic kidney disease; N18.9 Chronic kidney disease, unspecified; K21.9 Gastro-esophageal reflux disease without esophagitis; Z79.890 Hormone replacement therapy; Z79.899 Other long term (current) drug therapy
CPT/HCPCS: 99284; 96374; 96375; 96361; 85025; 80048; 83690; 80076; 36415; 85007; J1200; J3490; J2765; J7030

== ENCOUNTER 2024-01-29 11:33 | Inpatient (IN) | payer MEDICARE, OTHER ==
[~2024-01-29] VITALS: Ht 154.9 cm; Wt 56.7 kg
[2024-01-29 12:12] LABS: BASOPHILS % (AUTO) 0.5 % (0.0-2.0); EOSINOPHILS % (AUTO) 0.2 % (0.0-6.0); HEMATOCRIT 27 % (33-45); LYMPHOCYTES # (AUTO) 1.1 K/uL (0.8-4.8); MEAN CORPUSCULAR HEMOGLOBIN 34 PG (26.0-33.0); MEAN CORPUSCULAR HGB CONC 33 g/dl (31.0-36.0); MEAN CORPUSCULAR VOLUME 102 fL (82-100); MONOCYTES # (AUTO) 0.4 K/uL (0.1-1.30); MONOCYTES % (AUTO) 6.1 % (2.0-12.0); NEUTROPHILS # (AUTO) 5.1 K/uL (1.8-8.9); NEUTROPHILS % (AUTO) 76.2 % (43.0-81.0); PLATELET COUNT (AUTO) 109 K/uL (150-450); RED BLOOD CELL COUNT(AUTO) 2.66 MIL/uL (4.0-5.2); RED CELL DISTRIBUTION WIDTH 14.7 % (11.5-15.0); WHITE BLOOD COUNT (AUTO) 6.7 K/uL (4.3-11.0)
[2024-01-29 12:34] LABS: CALCIUM, SERUM 7.6 mg/dL (8.5-10.1); CREATININE 5.6 mg/dL (0.6-1.3); POTASSIUM 3.3 mmol/L (3.5-5.1)
[2024-01-29 12:39] LABS: ALBUMIN 1.8 g/dL (3.4-5.0); BILIRUBIN,DIRECT 0.1 mg/dL (0.0-0.2); BILIRUBIN,TOTAL 0.3 mg/dL (0.2-1.0); TOTAL PROTEIN, SERUM 6.5 g/dL (6.4-8.2)
[2024-01-29] MEDS ORDERED: ONDANSETRON HCL/PF 4 MG/2 ML VIAL ONE (12:44)
[2024-01-29] MEDS: IV NS 0.9% 1,000 ML BAG IV ONE (13:01)
[2024-01-29] MEDS: ONDANSETRON HCL/PF 4 MG/2 ML VIAL IV ONE (13:08)
[2024-01-29] MEDS ORDERED: FAMO-131 PO (13:13)
[2024-01-29] MEDS ORDERED: PROC5TAB59 PO (13:13)
[2024-01-29] MEDS ORDERED: HYDR4TAB4 PO (13:13)
[2024-01-29] MEDS ORDERED: ONDA-97 PO (13:13)
[2024-01-29] MEDS ORDERED: MAG HYDROX/AL HYDROX/SIMETH 30 ML UDC PO PRN (13:30)
[2024-01-29] MEDS ORDERED: HYDROCODONE/APAP 10/325MG TABLET PO PRN (13:30)
[2024-01-29] MEDS ORDERED: ACETAMINOPHEN 325 MG TABLET PO PRN (13:30)
[2024-01-29] MEDS ORDERED: Z GUARD REMEDY 4 OZ OINT TP PRN (13:30)
[2024-01-29] MEDS: FAMOTIDINE/PF INJ 20 MG/2 ML VIAL IV ONE (15:55)
[2024-01-29] MEDS: HYDROMORPHONE 1 MG/1 ML DISP.SYRIN IV ONE (15:58)
[2024-01-29] MEDS ORDERED: METOCLOPRAMIDE HCL 10 MG/2 ML VIAL IV SCH (17:00)
[2024-01-29] MEDS ORDERED: FAMOTIDINE/PF INJ 20 MG/2 ML VIAL IV SCH (17:00)
[2024-01-29 20:00] VITALS: BP 117/73; TEMP 98.1; O2SAT 99
[2024-01-29] MEDS: FAMOTIDINE/PF INJ 20 MG/2 ML VIAL IV SCH (20:21)
[2024-01-29] MEDS: METOCLOPRAMIDE HCL 10 MG/2 ML VIAL IV SCH (20:21)
[2024-01-29] MEDS: Thiamine 100 MG in IV D5W 50 ML IV SCH (20:25)
[2024-01-29] MEDS: SOD FERRIC GLUC 125 MG in IV NS 0.9% 100 ML IV SCH (20:59)
[2024-01-29] MEDS: HYDROMORPHONE 1 MG/1 ML DISP.SYRIN IV PRN (22:38)
[2024-01-29] MEDS: IV NS 0.9% 1,000 ML IV PRN (23:29)
[2024-01-30] VITALS: BP 109/53; TEMP 98.1; O2SAT 100
[2024-01-30] MEDS ORDERED: POTASSIUM CHLORIDE 10 MEQ/50 ML PREMIXED IVPB FOR PERIPHERAL LINE IV ONE
[2024-01-30] MEDS: POTASSIUM CHLORIDE 10 MEQ/50 ML PREMIXED IVPB FOR PERIPHERAL LINE IV ONE ×2 (00:25→13:18)
[2024-01-30] MEDS: ONDANSETRON HCL/PF 4 MG/2 ML VIAL IVP PRN (02:20)
[2024-01-30 04:00] VITALS: BP 117/70; TEMP 97.5; O2SAT 99
[2024-01-30 07:49] LABS: ALBUMIN 1.8 g/dL (3.4-5.0); BILIRUBIN,TOTAL 0.3 mg/dL (0.2-1.0); CALCIUM, SERUM 7.7 mg/dL (8.5-10.1); CREATININE 5.5 mg/dL (0.6-1.3); MAGNESIUM 1.5 mg/dL (1.8-2.4); PHOSPHORUS 6.7 mg/dL (2.5-4.9); POTASSIUM 3.4 mmol/L (3.5-5.1); TOTAL PROTEIN, SERUM 6.3 g/dL (6.4-8.2)
[2024-01-30 07:50] LABS: BASOPHILS % (AUTO) 0.3 % (0.0-2.0); EOSINOPHILS % (AUTO) 0.3 % (0.0-6.0); HEMATOCRIT 28 % (33-45); LYMPHOCYTES # (AUTO) 1.3 K/uL (0.8-4.8); LYMPHOCYTES % (AUTO) 20.9 % (20.0-44.0); MEAN CORPUSCULAR HEMOGLOBIN 33 PG (26.0-33.0); MEAN CORPUSCULAR HGB CONC 32 g/dl (31.0-36.0); MEAN CORPUSCULAR VOLUME 103 fL (82-100); MONOCYTES # (AUTO) 0.4 K/uL (0.1-1.30); MONOCYTES % (AUTO) 6.4 % (2.0-12.0); NEUTROPHILS # (AUTO) 4.5 K/uL (1.8-8.9); NEUTROPHILS % (AUTO) 72.1 % (43.0-81.0); PLATELET COUNT (AUTO) 95 K/uL (150-450); RED BLOOD CELL COUNT(AUTO) 2.72 MIL/uL (4.0-5.2); RED CELL DISTRIBUTION WIDTH 14.7 % (11.5-15.0); WHITE BLOOD COUNT (AUTO) 6.3 K/uL (4.3-11.0)
[2024-01-30 08:00] VITALS: BP 112/71; TEMP 97.2; O2SAT 96
[2024-01-30] MEDS: GABAPENTIN 100 MG CAPSULE PO SCH (09:00)
[2024-01-30] MEDS ORDERED: PANTOPRAZOLE 40 MG VIAL IV SCH (09:00)
[2024-01-30] MEDS: LOSARTAN POTASSIUM 50 MG TABLET PO SCH (09:13)
[2024-01-30 10:25] LABS: ABG BASE EXCESS -17.2 mmol/L (-2.0-3.0); ABG OXYGEN SATURATION 96.7 % (94.0-98.0); ABG PCO2 18.7 mmHg (32.0-45.0); ABG PH 7.257 (7.350-7.450); ABG PO2 113.6 mmHg (83.0-108.0); ABG TOTAL HEMOGLOBIN 8.5 G/dL (12.0-16.0); COHb 0.5 % (0.5-1.5); MetHb 0.3 % (0.0-1.5); O2Hb 95.9 % (94.0-97.0)
[2024-01-30] MEDS ORDERED: D5 IV PRN (11:00)
[2024-01-30] MEDS ORDERED: SODIUM BICARBONATE IV PRN (11:00)
[2024-01-30] MEDS ORDERED: NACL IV PRN (11:00)
[2024-01-30 11:12] LABS: BAND % (MANUAL) 1 % (0.0-5.0); LYMPHOCYTES % (MANUAL) 25 % (16-48); NEUTROPHILS % (MANUAL) 74 (42-76)
[2024-01-30 11:13] LABS: ANISOCYTOSIS 1+; PLATELET ESTIMATE DECREASED
[2024-01-30] MEDS: SODIUM BICARBONATE SYR 50 MEQ/50 ML DISP.SYRIN IV ONE (11:16)
[2024-01-30] MEDS: Sodium Bicarbonate 100 MEQ in IV D5/0.45 NACL 1,000 ML IV SCH (11:27)
[2024-01-30] MEDS: Magnesium 1GM/D5W 100ML PREMIX 100 ML IV SCH (13:16)
[2024-01-30] MEDS: HYDROMORPHONE 1 MG/1 ML DISP.SYRIN IV PRN (14:48)
[2024-01-30 16:00] VITALS: BP 133/66; TEMP 97.8; O2SAT 99
[2024-01-30] MEDS: AMLODIPINE BESYLATE 10 MG TABLET PO SCH (17:16)
[2024-01-30] MEDS: PROCHLORPERAZINE EDISYLATE 10 MG/2 ML VIAL IM/IV PRN (17:36)
[2024-01-30 20:00] VITALS: BP 153/74; TEMP 97.7; O2SAT 99
[2024-01-30] MEDS: ONDANSETRON HCL/PF 4 MG/2 ML VIAL IV PRN (21:30)
[2024-01-31] VITALS: BP 155/73; TEMP 97.7; O2SAT 96
[2024-01-31 04:00] VITALS: BP 147/87; TEMP 97.5; O2SAT 99
[2024-01-31 07:00] LABS: BASOPHILS % (AUTO) 0.3 % (0.0-2.0); EOSINOPHILS % (AUTO) 0.5 % (0.0-6.0); HEMATOCRIT 23 % (33-45); HEMOGLOBIN 7.9 g/dL (11.5-14.8); LYMPHOCYTES # (AUTO) 0.7 K/uL (0.8-4.8); LYMPHOCYTES % (AUTO) 13.3 % (20.0-44.0); MEAN CORPUSCULAR HEMOGLOBIN 34 PG (26.0-33.0); MEAN CORPUSCULAR HGB CONC 34 g/dl (31.0-36.0); MEAN CORPUSCULAR VOLUME 100 fL (82-100); MONOCYTES # (AUTO) 0.3 K/uL (0.1-1.30); MONOCYTES % (AUTO) 6.1 % (2.0-12.0); NEUTROPHILS # (AUTO) 4.1 K/uL (1.8-8.9); NEUTROPHILS % (AUTO) 79.8 % (43.0-81.0); PLATELET COUNT (AUTO) 74 K/uL (150-450); RED BLOOD CELL COUNT(AUTO) 2.32 MIL/uL (4.0-5.2); RED CELL DISTRIBUTION WIDTH 14.4 % (11.5-15.0); WHITE BLOOD COUNT (AUTO) 5.1 K/uL (4.3-11.0)
[2024-01-31 08:00] VITALS: BP 122/81; TEMP 97.5; O2SAT 99
[2024-01-31 10:09] LABS: ABG BASE EXCESS -6.2 mmol/L (-2.0-3.0); ABG OXYGEN SATURATION 96.6 % (94.0-98.0); ABG PCO2 27.1 mmHg (32.0-45.0); ABG PH 7.425 (7.350-7.450); ABG PO2 101.8 mmHg (83.0-108.0); ABG TOTAL HEMOGLOBIN 7.4 G/dL (12.0-16.0); COHb 1.5 % (0.5-1.5); MetHb 0.2 % (0.0-1.5); SITE, ABG RIGHT RADIAL
[2024-01-31 11:17] LABS: BILIRUBIN,TOTAL 0.2 mg/dL (0.2-1.0); CALCIUM, SERUM 6.3 mg/dL (8.5-10.1); CREATININE 4.1 mg/dL (0.6-1.3); MAGNESIUM 1.5 mg/dL (1.8-2.4); PHOSPHORUS 4.3 mg/dL (2.5-4.9); TOTAL PROTEIN, SERUM 4.6 g/dL (6.4-8.2)
[2024-01-31 11:23] LABS: ALBUMIN 1.3 g/dL (3.4-5.0); POTASSIUM 2.3 mmol/L (3.5-5.1)
[2024-01-31 12:00] VITALS: BP 110/85; TEMP 97.9
[2024-01-31 12:28] LABS: BASOPHILS % (MANUAL) 0 % (0.0-2.0); EOSINOPHILS % (MANUAL) 0 % (0-4); LYMPHOCYTES % (MANUAL) 11 % (16-48); MONOCYTES % (MANUAL) 6 % (0-11.0); NEUTROPHILS % (MANUAL) 83 (42-76)
[2024-01-31 12:29] LABS: ANISOCYTOSIS 1+; PLATELET ESTIMATE DECREASED
[2024-01-31] MEDS: Magnesium 1GM/D5W 100ML PREMIX 100 ML IV SCH (13:16)
[2024-01-31] MEDS: Potassium Chloride 10 MEQ, LIDOCAINE HCL/PF 1% 1 ML in IV NS 0.9% 50 ML IV SCH (14:03)
[2024-01-31 16:00] VITALS: BP 149/84; TEMP 97.9; O2SAT 99
[2024-01-31] MEDS: IV LR 1000 ML 1,000 ML IV ONE (16:04)
[2024-01-31 20:00] VITALS: BP 117/68; TEMP 97.9; O2SAT 99
[2024-01-31 23:34] LABS: HEMOGLOBIN 7.5 g/dL (11.5-14.8)
[2024-01-31 23:46] LABS: CALCIUM, SERUM 7.4 mg/dL (8.5-10.1); CREATININE 4.5 mg/dL (0.6-1.3)
[2024-01-31 23:51] LABS: POTASSIUM 2.8 mmol/L (3.5-5.1)
[2024-02-01] VITALS: BP_SYST 124; BP_SYST 99; BP_DIAS 71; BP_DIAS 82; TEMP 97.8; TEMP 97.9; O2SAT 100
[2024-02-01] MEDS: POTASSIUM CL. PREMIX PERIPHER. 50 ML IV SCH (00:18)
[2024-02-01] MEDS: POTASSIUM CHLORIDE 10 MEQ/50 ML PREMIXED IVPB FOR PERIPHERAL LINE IV ONE (01:41)
[2024-02-01 04:00] VITALS: BP 124/71; TEMP 97.9; O2SAT 100
[2024-02-01 07:30] VITALS: BP 115/71; TEMP 98.1; O2SAT 99
[2024-02-01] MEDS: IV D5/0.45 NACL 1,000 ML IV PRN (11:39)
[2024-02-01 12:00] VITALS: BP 117/73; TEMP 97.8; O2SAT 100
[2024-02-01 16:00] VITALS: BP 128/75; TEMP 97.9; O2SAT 97
[2024-02-01 20:35] LABS: BASOPHILS % (AUTO) 0.5 % (0.0-2.0); EOSINOPHILS % (AUTO) 0.2 % (0.0-6.0); HEMATOCRIT 26 % (33-45); HEMOGLOBIN 8.5 g/dL (11.5-14.8); LYMPHOCYTES # (AUTO) 1.5 K/uL (0.8-4.8); LYMPHOCYTES % (AUTO) 23.6 % (20.0-44.0); MEAN CORPUSCULAR HEMOGLOBIN 34 PG (26.0-33.0); MEAN CORPUSCULAR HGB CONC 33 g/dl (31.0-36.0); MEAN CORPUSCULAR VOLUME 104 fL (82-100); MONOCYTES # (AUTO) 0.4 K/uL (0.1-1.30); MONOCYTES % (AUTO) 6.6 % (2.0-12.0); NEUTROPHILS # (AUTO) 4.3 K/uL (1.8-8.9); NEUTROPHILS % (AUTO) 69.1 % (43.0-81.0); PLATELET COUNT (AUTO) 65 K/uL (150-450); RED BLOOD CELL COUNT(AUTO) 2.52 MIL/uL (4.0-5.2); RED CELL DISTRIBUTION WIDTH 15.4 % (11.5-15.0); WHITE BLOOD COUNT (AUTO) 6.2 K/uL (4.3-11.0)
[2024-02-01 21:14] LABS: ALBUMIN 1.6 g/dL (3.4-5.0); BILIRUBIN,TOTAL 0.1 mg/dL (0.2-1.0); CALCIUM, SERUM 8.7 mg/dL (8.5-10.1); CREATININE 4.1 mg/dL (0.6-1.3); PHOSPHORUS 4.5 mg/dL (2.5-4.9); TOTAL PROTEIN, SERUM 5.5 g/dL (6.4-8.2)
[2024-02-01 21:49] LABS: LYMPHOCYTES % (MANUAL) 24 % (16-48); MONOCYTES % (MANUAL) 2 % (0-11.0); NEUTROPHILS % (MANUAL) 74 (42-76)
[2024-02-01 21:50] LABS: ANISOCYTOSIS 1+; PLATELET ESTIMATE DECREASED
[2024-02-02 07:30] VITALS: BP 135/75; TEMP 97.7; O2SAT 99
[2024-02-02] MEDS: MAG HYDROX/AL HYDROX/SIMETH 30 ML UDC PO ONE (12:44)
[2024-02-02 13:24] LABS: BASOPHILS % (AUTO) 0.4 % (0.0-2.0); EOSINOPHILS % (AUTO) 0.2 % (0.0-6.0); HEMATOCRIT 24 % (33-45); HEMOGLOBIN 8.2 g/dL (11.5-14.8); LYMPHOCYTES # (AUTO) 1.3 K/uL (0.8-4.8); LYMPHOCYTES % (AUTO) 19.6 % (20.0-44.0); MEAN CORPUSCULAR HEMOGLOBIN 33 PG (26.0-33.0); MEAN CORPUSCULAR HGB CONC 34 g/dl (31.0-36.0); MEAN CORPUSCULAR VOLUME 99 fL (82-100); MONOCYTES # (AUTO) 0.4 K/uL (0.1-1.30); MONOCYTES % (AUTO) 5.7 % (2.0-12.0); NEUTROPHILS # (AUTO) 4.7 K/uL (1.8-8.9); NEUTROPHILS % (AUTO) 74.1 % (43.0-81.0); PLATELET COUNT (AUTO) 59 K/uL (150-450); RED BLOOD CELL COUNT(AUTO) 2.45 MIL/uL (4.0-5.2); RED CELL DISTRIBUTION WIDTH 14.5 % (11.5-15.0); WHITE BLOOD COUNT (AUTO) 6.4 K/uL (4.3-11.0)
[2024-02-02 13:46] LABS: ALBUMIN 1.5 g/dL (3.4-5.0); BILIRUBIN,TOTAL 0.3 mg/dL (0.2-1.0); CALCIUM, SERUM 8.7 mg/dL (8.5-10.1); CREATININE 4.1 mg/dL (0.6-1.3); PHOSPHORUS 4.7 mg/dL (2.5-4.9); TOTAL PROTEIN, SERUM 5.5 g/dL (6.4-8.2)
[2024-02-02 14:29] LABS: POTASSIUM 2.8 mmol/L (3.5-5.1)
[2024-02-02 14:49] LABS: ANISOCYTOSIS 1+; EOSINOPHILS % (MANUAL) 1 % (0-4); LYMPHOCYTES % (MANUAL) 23 % (16-48); NEUTROPHILS % (MANUAL) 76 (42-76); PLATELET ESTIMATE DECREASED
[2024-02-02 16:00] VITALS: BP 157/77; TEMP 97.9; O2SAT 99
[2024-02-02] MEDS: Potassium Chloride 10 MEQ, LIDOCAINE HCL/PF 1% 1 ML in IV NS 0.9% 50 ML IV SCH (16:01)
[2024-02-02] MEDS: MAG HYDROX/AL HYDROX/SIMETH 30 ML UDC PO PRN (16:10)
[2024-02-02 22:48] VITALS: BP 142/78; TEMP 97.9; O2SAT 99
[2024-02-03] VITALS (17 sets, daily range): BP systolic 68–112; BP diastolic 26–84; TEMP 97.7–98.4; O2SAT 99–100
[2024-02-03 03:10] LABS: PTH, INTACT 136 pg/mL (15-65)
[2024-02-03 07:22] LABS: CALCIUM, SERUM 8.5 mg/dL (8.5-10.1); CREATININE 3.9 mg/dL (0.6-1.3); POTASSIUM 3.3 mmol/L (3.5-5.1)
[2024-02-03 07:23] LABS: INR 1.14 (0.91-1.10); PARTIAL THROMBOPLASTIN TIME 36.1 SEC (24.3-34.3)
[2024-02-03] MEDS ORDERED: HEPARIN SODIUM, PORCINE 1,000 UNIT/ML VIAL ONE (11:26)
[2024-02-03] MEDS ORDERED: LIDOCAINE HCL/MPF 1% 30 ML VIAL IJ ONE (11:26)
[2024-02-03] MEDS ORDERED: IOHEXOL 0 ML IV ONE (11:26)
[2024-02-03] MEDS ORDERED: ANESTHESIA TRAY IN PYXIS 1 EA TRAY MC ONE (11:26)
[2024-02-03] MEDS: Potassium Chloride 10 MEQ, LIDOCAINE HCL/PF 1% 1 ML in IV NS 0.9% 50 ML IV SCH (12:58)
[2024-02-03] MEDS: MAGNESIUM HYDROXIDE 30 ML UDC PO PRN (17:16)
[2024-02-03] MEDS: IV NS 0.9% 500 ML BAG IV ONE (19:43)
[2024-02-03 21:58] LABS: ABG OXYGEN SATURATION 97.4 % (94.0-98.0); ABG PCO2 14.9 mmHg (32.0-45.0); ABG PH 7.424 (7.350-7.450); ABG PO2 140.5 mmHg (83.0-108.0); ABG TOTAL HEMOGLOBIN 8.5 G/dL (12.0-16.0); MetHb 0.3 % (0.0-1.5); O2Hb 97.1 % (94.0-97.0); SITE, ABG LEFT RADIAL
[2024-02-03 22:01] LABS: CALCIUM, SERUM 8.2 mg/dL (8.5-10.1); CARBON DIOXIDE 11 mmol/L (21-32); CHLORIDE 110 mmol/L (98-107); CREATININE 4.4 mg/dL (0.6-1.3); GLUCOSE 281 mg/dL (74-106); SODIUM SERUM 145 mmol/L (136-145)
[2024-02-03 22:04] LABS: EOSINOPHILS % (AUTO) 0.1 % (0.0-6.0); HEMOGLOBIN 7.9 g/dL (11.5-14.8); MEAN CORPUSCULAR HGB CONC 32 g/dl (31.0-36.0)
[2024-02-03 22:10] LABS: HEMATOCRIT 25 % (33-45); LYMPHOCYTES # (AUTO) 1.2 K/uL (0.8-4.8); LYMPHOCYTES % (AUTO) 7.6 % (20.0-44.0); MEAN CORPUSCULAR HEMOGLOBIN 33 PG (26.0-33.0); MEAN CORPUSCULAR VOLUME 102 fL (82-100); MONOCYTES # (AUTO) 0.4 K/uL (0.1-1.30); MONOCYTES % (AUTO) 2.6 % (2.0-12.0); NEUTROPHILS # (AUTO) 14.6 K/uL (1.8-8.9); NEUTROPHILS % (AUTO) 89.7 % (43.0-81.0); RED BLOOD CELL COUNT(AUTO) 2.41 MIL/uL (4.0-5.2); RED CELL DISTRIBUTION WIDTH 14.9 % (11.5-15.0); WHITE BLOOD COUNT (AUTO) 16.3 K/uL (4.3-11.0)
[2024-02-03 22:12] LABS: PLATELET COUNT (AUTO) 49 K/uL (150-450)
[2024-02-03 22:21] LABS: UREA NITROGEN, BLOOD 83 mg/dL (7-18)
[2024-02-03 22:23] LABS: BASOPHILS % (MANUAL) 0 % (0.0-2.0); EOSINOPHILS % (MANUAL) 0 % (0-4); LYMPHOCYTES % (MANUAL) 10 % (16-48); MONOCYTES % (MANUAL) 4 % (0-11.0); NEUTROPHILS % (MANUAL) 86 (42-76)
[2024-02-03 22:24] LABS: PLATELET ESTIMATE DECREASED
[2024-02-03] MEDS: PHENYLEPHRINE 50 MG in IV NS 0.9% 245 ML IV PRN (22:55)
[2024-02-03] MEDS ORDERED: PHENYLEPHRINE 50 MG in IV NS 0.9% 245 ML IV PRN (23:00)
[2024-02-03] MEDS: Sodium Bicarbonate 100 MEQ in IV NS 0.9% 1,000 ML IV PRN (23:14)
[2024-02-03] MEDS: IV NS 0.9% 250 ML IV PRN (23:36)
[2024-02-03] MEDS: PIPERACI/TAZO 3.375GM/D5W 50ML PB IV ONE (23:37)
[2024-02-03] MEDS: SODIUM BICARBONATE SYR 50 MEQ/50 ML DISP.SYRIN ONE (23:37)
[2024-02-03] MEDS: PIPERACILLIN /TAZOBACTAM 3.375 G in IV NS 0.9% 100 ML IV ONE (23:37)
[2024-02-03] MEDS: PHENYLEPHRINE 10 MG/ML VIAL ONE (23:37)
[2024-02-04] VITALS (16 sets, daily range): BP systolic 30–105; BP diastolic 17–74; TEMP 97.6; O2SAT 100
[2024-02-04 01:00] LABS: BILIRUBIN,DIRECT 0.1 mg/dL (0.0-0.2)
[2024-02-04 07:10] LABS: *SPE A/G RATIO 0.7 (0.7-1.7); *SPE ALBUMIN 2.3 g/dL (2.9-4.4); *SPE ALPHA-1-GLOBULIN 0.4 g/dL (0.0-0.4); *SPE ALPHA-2-GLOBULIN 0.9 g/dL (0.4-1.0); *SPE BETA GLOBULIN 0.8 g/dL (0.7-1.3); *SPE GLOBULIN, TOTAL 3.2 g/dL (2.2-3.9); *SPE M-SPIKE Not Observed g/dL (Not Observed); *SPE PROTEIN TOTAL 5.5 g/dL (6.0-8.5); *SPEGAMMA GLOBULIN 1.1 g/dL (0.4-1.8)
[2024-02-04] MEDS ORDERED: PIPERACILLIN /TAZOBACTAM 2.25 G in IV D5W 50 ML IV SCH (07:30)
[2024-02-04] MEDS ORDERED: Sodium Bicarbonate 100 MEQ in IV NS 0.9% 1,000 ML IV SCH (13:30)
== END 2024-02-04 06:50 | DRG 682 ==
LOC: ER 11:35 → TELE 17:21 → ICU 02-03 22:49
PROVIDERS: ADMIT Nurse Practitioner Acute Care; ATTEND Nurse Practitioner Acute Care
DX: N17.0 Acute kidney failure with tubular necrosis (principal); E43 Unspecified severe protein-calorie malnutrition; C45.1 Mesothelioma of peritoneum; R64 Cachexia; D61.818 Other pancytopenia; I12.0 Hypertensive chronic kidney disease with stage 5 chronic kidney disease or end stage renal disease; E87.20 Acidosis, unspecified; E86.0 Dehydration; N18.5 Chronic kidney disease, stage 5; E87.6 Hypokalemia; D53.9 Nutritional anemia, unspecified; K21.9 Gastro-esophageal reflux disease without esophagitis; M89.8X9 Other specified disorders of bone, unspecified site; E88.09 Other disorders of plasma-protein metabolism, not elsewhere classified; G89.29 Other chronic pain; Z68.23 Body mass index [BMI] 23.0-23.9, adult; R11.2 Nausea with vomiting, unspecified; Z66 Do not resuscitate; Z79.899 Other long term (current) drug therapy; D69.6 Thrombocytopenia, unspecified
CPT/HCPCS: 36415; 36600; 70450-TC; 71045-TC; 76770-TC; 80048-TC; 80053-TC; 80076-TC; 82248-TC; 82550-TC; 82803-TC; 82962-TC; 83605-TC; 83690-TC; 83735-TC; 83970; 84100-TC; 84155; 84165; 85025-TC; 85027-TC; 85610-TC; 85730-TC; 87040-TC; 87081-TC; A4223; G0378; J0780; J1171; J1644; J2405; J2543; J2765; J2916; J3411; J3475; J3480; J3490; J7030; J7040; J7050; J7060; Q9967